=== PATIENT | female | born 1970 | race American Indian/Alaskan Native ===

== ENCOUNTER 2019-09-04 09:58 | Outpatient (CLI) | payer OTHER ==
--- NOTE | 2019-09-04 10:50 | Ultrasound Report ---
COMPLETE BILATERAL BREAST ULTRASOUND HISTORY: Bilateral breast pain. COMPARISON: January 2019 screening mammogram from [facility], [place] FINDINGS: Complete sonographic evaluation of the right breast including imaging of the four quadrant s and subareolar areas reveals normal structures with no mass, cyst or suspicious shadowing. Complete sonographic evaluation of the left breast including imaging of the four quadrants and subare olar areas reveals normal structures with no mass, cyst or suspicious shadowing. IMPRESSION: Normal bilateral breast ultrasound. If the clinical examination remains stable, the patient should continue an annual screening mammograp hic evaluation schedule. BIRADS 1: Negative. Signer Name: Anthony Yates MD Signed: 09/04/2019 10:46 AM Workstation Name: [id number]
== END 2019-09-04 09:59 | disposition home or self-care (01) ==
LOC: SPVWC 09:58
PROVIDERS: ATTEND Surgery
DX: N64.4 Mastodynia (principal)